=== PATIENT | female | born 1980 | race Caucasian/White ===

== ENCOUNTER 2022-04-02 07:38 | Emergency (ER) | payer OTHER ==
[~2022-04-02 07:38] MED LIST: BIOTIN10000 MCG PO; EC MATRIXX TAB1 EACH PO; FLEXERIL10 MG PO; KLONOPIN0.5 MG PO; LO LOESTRIN FE1 EACH PO; LOVAZA1 GM PO; METFORMIN HCL500 MG PO; MOTRIN600 MG PO; NORCO 5-325 TA1 EACH PO; TURMERIC500 M1 PO; VITAMIN D35000 UNIT PO; WOMEN'S MULTI200 MCG PO
[2022-04-02 08:47] LABS: BASOPHIL 0.3 % (0-2); EOSINOPHIL 0.6 % (0-5); HCT 41.9 % (37.0-47.0); HGB 14.1 g/dl (12.5-16.0); LYMPHOCYTE 36.8 % (15-48); MCH 28.9 pg (25.0-31.0); MCHC 33.7 g/dL (32.0-36.0); MCV 85.9 fL (78.0-100.0); MONOCYTE 7.3 % (0-12); MPV 10.4 fL (6.0-9.5); NEUTROPHIL 54.5 % (41-80); NRBC 0; PLT 323 K/uL (150-400); RBC 4.88 M/uL (4.20-5.40); RDW 12.4 % (11.5-14.0); WBC 6.6 K/uL (4.0-10.5)
[2022-04-02 08:57] LABS: ALBUMIN 3.8 g/dL (3.4-5.0); ALKALINE PHOSHATASE 54 U/L (46-116); ALT 19 U/L (14-59); AST 16 U/L (15-37); BILIRUBIN - TOTAL 0.4 mg/dL (0.2-1.0); BUN 12 mg/dL (7-18); BUN/CREAT RATIO (CALC) 14.5 RATIO; CHLORIDE 102 mmol/L (98-107); CO2 (BICARBONATE) 26 mmol/L (21-32); CREATININE 0.83 mg/dL (0.51-0.95); GLOBULIN (CALCULATION) 3.2 g/dL; GLUCOSE 92 mg/dL (74-106); MAGNESIUM 2.1 mg/dL (1.8-2.4); POTASSIUM 3.6 mmol/L (3.5-5.1)
[2022-04-02] MEDS ORDERED: VOLTAREN ARTHRI20 GM TOP (10:48)
[2022-04-02] MEDS ORDERED: MEDROL 4MG DOSEP4 MG PO (10:48)
== END 2022-04-02 11:21 | disposition home or self-care (01) ==
LOC: FER 07:38
PROVIDERS: Emergency Medicine
DX: M94.0 Chondrocostal junction syndrome [Tietze] (principal); Z20.822 Contact with and (suspected) exposure to COVID-19; Z88.0 Allergy status to penicillin; Z88.1 Allergy status to other antibiotic agents
CPT/HCPCS: 36415; 80053; 83735; 84484; 85025; 85379; 93005; U0002